=== PATIENT | male | born 1995 | race Caucasian/White ===

== ENCOUNTER 2022-03-12 17:22 | Emergency (ER) | payer OTHER, SELFPAY ==
--- NOTE | 2022-03-12 17:22 | ED.URI ---
HPI - URI/Sore Throat General Chief Complaint: Fever Stated Complaint: fever and body aches Time Seen by Provider: 03/12/22 17:22 Source: patient Mode of arrival: ambulatory Limitations: no limitations History of Present Illness HPI Narrative: Mr. Momin is a 27-year-old male patient presenting to the clinic today with complaints of fatigue, fever, chills, sore throat, nasal congestion, headache, and body aches x1 day. He reports symptoms started last night. He reports fever highest of 102. Has been taking DayQuil and NyQuil and his temp is 99 in the clinic today. He denies any sick contacts. States he works for [employer] and has not been around anyone. He denies any chest pain, shortness of breath, or loss of taste/smell Related Data Home Medications Medication Instructions Recorded Confirmed No Home Medications 03/12/22 03/12/22 Allergies Allergy/AdvReac Type Severity Reaction Status Date / Time No Known Allergies Allergy Verified 03/12/22 17:32 Review of Systems Review of Systems: Pertinent positives per HPI. Patient denies any rash, headache, visual changes, dizziness, cough, runny nose, sore throat, shortness of breath, chest pain, palpitations, nausea, vomiting, diarrhea, constipation, abdominal pain, or any urinary issues. PMFSH Comments At the time of my signature, I reviewed and agree with the nursing past medical, surgical, social, and family history. There is no relevant family history pertinent to the patient complaint. Exam Narrative: General: Well-developed, well nourished, in no apparent distress Head: Normocephalic, atraumatic Eyes: Pupils equally round and reactive to light bilaterally, EOM intact, sclera and conjunctive clear, no discharge, lids normal Ears: TMs intact and dull , ear canals clear, no drainage, grossly hearing normal. Nose: Nares patent, clear discharge, no inflammation, no sinus tenderness. Mouth: Oropharynx without lesions or masses, good dentition, MMM. Neck: Supple, trachea midline, no enlargement of anterior or posterior cervical nodes, no thyroid masses or goiter palpable. Cardio: Regular rate and rhythm, s1 and s2 normal, no murmur appreciated. Resp: Clear to auscultation bilaterally anteriorly and posteriorly, no rhonchi, rales, wheezing or rubs Course Course Emergency Course: Portions of this record may have been created with voice recognition software. Level of Care: Express Care Visit Vital Signs Vital signs: Vital signs reviewed MDM - URI/Sore Throat MDM Narrative Medical decision making narrative: At the time of visit patient is resting comfortably on the exam table. Strep, COVID, influenza test completed and were negative in the clinic today. I will go ahead and send off a COVID PCR test for the patient. I suspect the patient has a viral syndrome. Supportive measures were discussed with the patient he voiced understanding of discharge instructions and agrees to treatment plan. Differential Diagnosis Differential diagnosis: Likely upper respiratory infection, otitis media, sinusitis, viral infection, bronchitis, influenza, pharyngitis and other (covid) Discharge Plan Discharge Clinical Impression: Viral syndrome Patient Disposition: Home, Self-Care Condition: Stable Instructions: Antibiotic Form, Viral Syndrome (ED) Additional Instructions: Strep, COVID, and influenza testing negative in the clinic today. We will send strep for culture. PCR COVID test was obtained and sent to the lab Increase fluids and stay well hydrated Tylenol/motrin for pain/fever Flonase and OTC antihistamines as directed Vicks vapor rub to open sinuses Sinus rinses for congestion Cepacol spray, cough drops, throat lozenges, warm tea with honey/lemon, gargle salt water to soothe throat BRAT diet for diarrhea Clear liquids x 24 hours then advance as tolerated for nausea/vomiting May return to the clinic if symptoms worsen Go to the ED if you
[2022-03-12 17:31] VITALS: BP 125/65; PULSE 57; RESP 14; TEMP 37.5; O2SAT 98
[2022-03-12 17:33] VITALS: BP 125/65; PULSE 57; RESP 14; TEMP 37.5; O2SAT 98
[2022-03-13 18:33] LABS: SARS-CoV-2 RNA PCR Negative
== END 2022-03-12 17:58 | disposition home or self-care (01) ==
PROVIDERS: Emergency Provider Nurse Practitioner Family
DX: B34.9 Viral infection, unspecified (principal); Z20.822 Contact with and (suspected) exposure to COVID-19
CPT/HCPCS: 87081; 87426; 87804; 87880; 99203; C9803; G0463; U0003; U0005